=== PATIENT | female | born 1990 | race Two or more races ===

== ENCOUNTER 2022-07-13 11:20 | Emergency (ER) | payer OTHER ==
[2022-07-13 11:56] VITALS: BP 129/80; PULSE 113; RESP 17; TEMP 97.9; BMI 29.5
[2022-07-13] MEDS ORDERED: KETOROLAC TROMETHAMINE 30 MG/1 ML VIAL IM ONE (14:35)
[2022-07-13] MEDS ORDERED: METHOCARBAMOL 500 MG TABLET PO ONE (14:35)
[2022-07-13] MEDS ORDERED: METHOCARBAMOL 500 MG TABLET ONE (15:50)
[2022-07-13] MEDS ORDERED: KETOROLAC TROMETHAMINE 30 MG/1 ML VIAL ONE ×2 (15:50)
== END 2022-07-13 15:56 | disposition home or self-care (01) ==
LOC: JERFT 11:20
DX: M62.838 Other muscle spasm (principal)
CPT/HCPCS: 99283-25

== ENCOUNTER 2023-03-01 10:39 | Emergency (ER) | payer OTHER ==
[2023-03-01 10:44] VITALS: BP 147/70; PULSE 84; RESP 18; TEMP 98.3; BMI 35.4
[2023-03-01] MEDS ORDERED: DIPHTH,PERTUSS(ACELL),TET 0.5 ML DISP.SYRIN IM ONE ×2 (11:17→11:21)
[2023-03-01] MEDS ORDERED: LIDOCAINE HCL 2% (20ML MULTI-DOSE VIAL) NR SCH (11:30)
== END 2023-03-01 12:37 | disposition home or self-care (01) ==
LOC: JERFT 10:39 → JER 10:39 → JERFT 12:37
PROC: 0HQKXZZ Repair Right Lower Leg Skin, External Approach (ICD-10-PCS; principal; 2023-03-01)
PROC: 3E0234Z Introduction of Serum, Toxoid and Vaccine into Muscle, Percutaneous Approach (ICD-10-PCS; 2023-03-01)
DX: S91.011A Laceration without foreign body, right ankle, initial encounter (principal); W22.8XXA Striking against or struck by other objects, initial encounter
CPT/HCPCS: 90715; 99282-25

== ENCOUNTER 2023-03-14 13:48 | Emergency (ER) | payer OTHER ==
[2023-03-14 13:57] VITALS: BP 131/75; PULSE 70; RESP 18; TEMP 98.2; BMI 35.0
== END 2023-03-14 14:30 | disposition home or self-care (01) ==
LOC: JERFT 13:48
DX: Z48.02 Encounter for removal of sutures (principal)
CPT/HCPCS: 99281-25

== ENCOUNTER 2023-07-07 07:26 | Emergency (ER) | payer OTHER ==
[2023-07-07 07:57] VITALS: BP 137/75; PULSE 93; RESP 18; TEMP 98.6; BMI 35.4
[2023-07-07] MEDS ORDERED: ACETAMINOPHEN 1000 MG/100 ML BAG IVPB ONE (08:17)
[2023-07-07] MEDS ORDERED: DEXAMETHASONE SOD PHOSPHATE 10 MG/1 ML VIAL IVPUSH ONE (08:17)
[2023-07-07] MEDS ORDERED: ACETAMINOPHEN INJECTION 100 ML IVPB ONE (08:22)
[2023-07-07] MEDS ORDERED: DEXAMETHASONE SOD PHOSPHATE 10 MG/1 ML VIAL ONE (08:22)
[2023-07-07 08:36] LABS: BASO % 0.3 % (0-2.0); EOS % 0.4 % (0-4.5); HEMATOCRIT 36.1 % (32.4-45.2); HEMOGLOBIN 11.1 GM/dL (10.7-15.3); LYMPH % 11.7 % (8-40); MCHC 30.7 g/dl (32.0-36.0); MEAN CELL VOLUME 61.9 fl (80-96); MEAN PLT VOLUME 7.9 fl (7.5-11.1); MONO % 10.8 % (3.8-10.2); NEUT % 76.8 % (42.8-82.8); PLATELET COUNT 478 10^3/uL (134-434); RBC 5.83 M/mm3 (3.60-5.2)
[2023-07-07 08:42] LABS: CALCIUM 8.9 mg/dL (8.5-10.1)
[2023-07-07 08:43] LABS: ALBUMIN 3.7 g/dl (3.4-5.0)
[2023-07-07 08:46] LABS: CREATININE 0.8 mg/dL (0.55-1.3)
[2023-07-07 08:48] LABS: BILIRUBIN,TOTAL 0.4 mg/dL (0.2-1); TOT PROT 8.3 g/dl (6.4-8.2)
[2023-07-07 09:08] LABS: THROAT:GRP A STREP DETECTED (NOTDETECTED)
[2023-07-07] MEDS ORDERED: AMPICILLIN NA/SULBACTAM NA 3 GM in SODIUM CHLORIDE 100 ML IVPB ONE (09:10)
[2023-07-07] MEDS ORDERED: AMPICILLIN NA/SULBACTAM NA 3 GM VIAL ONE (09:13)
[2023-07-07 09:38] LABS: ANISOCYTOSIS 2+; MACROCYTOSIS 2+; TARGET CELLS 1+
== END 2023-07-07 11:24 | disposition home or self-care (01) ==
LOC: JERFT 07:26 → JER 07:26 → JERFT 11:24
PROC: 3E03329 Introduction of Other Anti-infective into Peripheral Vein, Percutaneous Approach (ICD-10-PCS; principal; 2023-07-07)
PROC: 3E033NZ Introduction of Analgesics, Hypnotics, Sedatives into Peripheral Vein, Percutaneous Approach (ICD-10-PCS; 2023-07-07)
PROC: 3E033GC Introduction of Other Therapeutic Substance into Peripheral Vein, Percutaneous Approach (ICD-10-PCS; 2023-07-07)
DX: R07.0 Pain in throat (principal); M54.2 Cervicalgia; R51.9 Headache, unspecified; R68.83 Chills (without fever); R13.10 Dysphagia, unspecified; L53.9 Erythematous condition, unspecified; J03.90 Acute tonsillitis, unspecified; Z20.822 Contact with and (suspected) exposure to COVID-19
CPT/HCPCS: 0241U-QW; 36415; 70491-TC; 80053; 84703; 85025; 87651; 99285-25; J1100

== ENCOUNTER 2024-04-15 16:48 | Emergency (ER) | payer OTHER ==
[2024-04-15 17:09] VITALS: BP 128/69; PULSE 85; RESP 18; TEMP 98.4; BMI 35.4
[2024-04-15] MEDS ORDERED: METHOCARBAMOL 500 MG TABLET ONE (19:04)
[2024-04-15] MEDS ORDERED: ACETAMINOPHEN 500 MG TABLET (FP) ONE (19:04)
[2024-04-15] MEDS: METHOCARBAMOL 500 MG TABLET PO ONE (19:12)
[2024-04-15] MEDS: ACETAMINOPHEN 500 MG TABLET (FP) PO ONE (19:12)
[2024-04-15 19:37] LABS: BASO % 0.5 % (0-2.0); EOS % 2.2 % (0-4.5); HEMATOCRIT 35.1 % (32.4-45.2); HEMOGLOBIN 10.8 GM/dL (10.7-15.3); LYMPH % 28.9 % (8-40); MCHC 30.7 g/dl (32.0-36.0); MEAN CELL VOLUME 61.2 fl (80-96); MEAN PLT VOLUME 7.8 fl (7.5-11.1); MONO % 9.4 % (3.8-10.2); PLATELET COUNT 493 10^3/uL (134-434); POTASSIUM 4.3 mmol/L (3.5-5.1); RBC 5.74 M/mm3 (3.60-5.2); RDW 16.9 % (11.6-15.6); WHITE BLOOD COUNT 10.1 K/mm3 (4.0-10.0)
[2024-04-15 19:40] LABS: ALBUMIN 3.6 g/dl (3.4-5.0); BLOOD UREA NITROGEN 12.4 mg/dL (7-18); MCH 18.8 pg (25.7-33.7)
[2024-04-15 19:42] LABS: CALCIUM 9.2 mg/dL (8.5-10.1)
[2024-04-15 19:43] LABS: CREATININE 0.8 mg/dL (0.55-1.3)
[2024-04-15 19:44] LABS: BILIRUBIN,TOTAL 0.2 mg/dL (0.2-1); TOT PROT 8.2 g/dl (6.4-8.2)
[2024-04-15 20:11] LABS: ANISOCYTOSIS 3+; MACROCYTOSIS 0
== END 2024-04-15 21:57 | disposition home or self-care (01) ==
LOC: JERFT 16:48 → JER 16:48 → JERFT 21:57
DX: M54.12 Radiculopathy, cervical region (principal); R20.0 Anesthesia of skin; R42 Dizziness and giddiness
CPT/HCPCS: 36415; 70498-TC; 80053; 84703; 85025; 99285-25; Q9967